=== PATIENT | male | born 1995 | race Caucasian/White ===

== ENCOUNTER 2022-12-12 19:37 | Emergency (ER) | payer BC, MEDICAID, OTHER ==
[2022-12-12] MEDS ORDERED: Doxycycline 100 MG Cap PO ONE (20:03)
== END 2022-12-12 20:10 | disposition home or self-care (01) ==
LOC: LB.ED 19:37 → SUPCPDRO 19:37 → LB.ED 20:10
DX: S70.362A Insect bite (nonvenomous), left thigh, initial encounter (principal); W57.XXXA Bitten or stung by nonvenomous insect and other nonvenomous arthropods, initial encounter
CPT/HCPCS: 99281; A9270